=== PATIENT | male | born 1950 | race Caucasian/White ===

== ENCOUNTER 2017-08-05 01:38 | Day surgery (SDC) | payer MEDICARE, BC ==
[2017-08-05] VITALS (7 sets, daily range): BP systolic 108–156; BP diastolic 74–88
[~2017-08-05] VITALS: Ht 177.8 cm; Wt 82.1 kg
[~2017-08-05 01:38] MED LIST: TUM500 PO; [UNRECOGNIZED DRUG - CODE] PO
[2017-08-05] MEDS ORDERED: PROPOFOL EMUL(*) 10MG/ML 20 ML 40 ML ONE (07:06)
--- NOTE | 2017-08-05 07:23 | Post Operative Progress Note ---
Post Operative Progress Note Date: Aug 05, 2017 Time: 10:13 Surgeon: moi Anesthesia: dr rodríguez Pre-Op Diagnosis: screening colonoscopy and hemorrhoidal prolapse Post-Op Diagnosis: 1 mm polyp cecum and 2 mm polyp transverse colon and large internal hemorrhoids Procedure(s): colonoscopy and polypectomy and rubber band ligation MARCELLUS CARR MD Aug 05, 2017 07:23
--- NOTE | 2017-08-05 07:24 | Short(Outpt) Discharge Summary ---
Discharge Summary Reason for Hosp/Final Diag: (1) Hemorrhoid prolapse Hospital Course & Plan: rubber band ligation of internal hemorrhoids right anterior and right posterior (2) Encounter for screening colonoscopy Hospital Course & Plan: 1 mm polyp in cecum and 2 mm polyp transverse colon Departure Discharge to: Home Discharge Instructions Home Meds Discontinued Reported Medications Calcium Carbonate (Tums) 500 Mg Chew, 500 MG PO PRN 12/10/11 Clemastine Fumarate (Antihistamine 12HR) 1.34 Mg Tablet, 1.34 MG PO PRN 12/10/11 Diet: High Fiber Activity: As Tolerated MARCELLUS CARR MD Aug 05, 2017 07:24
[2017-08-05] MEDS ORDERED: LIDOCAINE/SOD BICARB 8.4% SYR ID ONE (07:55)
[2017-08-05] MEDS ORDERED: NORMOSOL R SOLN(*) 1000 ML BAG 1,000 ML IV PRN (07:55)
[2017-08-05] MEDS ORDERED: MIDAZOLAM 2 MG/2 ML VIAL IVP PRN (07:55)
[2017-08-05] MEDS ORDERED: PROPOFOL EMUL(*) 10MG/ML 20 ML 20 ML ONE (10:01)
--- NOTE | 2017-08-05 17:29 | OPERATIVE REPORT 1 ---
EVENT DATE: August 05, 2017 SURGEON: Juan Antonio Salcido MD ANESTHESIOLOGIST: Adam Fall MD ANESTHESIA: Sedation. PREOPERATIVE DIAGNOSES 1. Screening colonoscopy. 2. Prolapsing internal hemorrhoids. POSTOPERATIVE DIAGNOSES 1. A 1 mm polyp in the cecum. 2. A 2 mm polyp in the transverse colon. 3. Prominent internal hemorrhoids. PROCEDURES PERFORMED 1. Colonoscopy with polypectomy. 2. Rubber band ligation of internal hemorrhoids times two. DESCRIPTION OF PROCEDURE The patient was placed in the left lateral decubitus position and given intravenous sedation. Digital exam was unremarkable. The flexible colonoscope was inserted and advanced to the cecum. The ileocecal valve and base of the cecum were identified. He had a small, 1 mm projection in the cecum. This was removed with the cold cup. The rest of the cecum and right colon appeared to be normal. In the transverse colon, he had a 2 mm polypoid projection. This was removed with the cold cup. The descending and sigmoid colon were normal. The rectum was normal. The scope was retroflexed, and no abnormalities were noted. We then placed the operating anoscope. He had two especially large hemorrhoidal complexes in the right anterior and right posterior positions. Rubber bands were placed above each of these. The patient tolerated the procedure well. No apparent complications. He will require a repeat colonoscopy in five years if those polyps are adenomatous. [facility]
== END 2017-08-05 11:43 | disposition home or self-care (01) ==
LOC: OR 01:38
PROVIDERS: ATTEND Surgery
DX: K64.8 Other hemorrhoids (principal); D12.0 Benign neoplasm of cecum; D12.3 Benign neoplasm of transverse colon
CPT/HCPCS: 00811; 45380; 45398; 88305; J2704